=== PATIENT | female | born 1960 | race Two or more races ===

== ENCOUNTER 2017-08-28 02:59 | Inpatient (IN) | payer MEDICARE, MEDICAID ==
[~2017-08-28] VITALS: Ht 147.3 cm; Wt 68.1 kg
[2017-08-28] MEDS ORDERED: morphine SULFATE 10 MG/ML, 1ML IVPush PRN ×2 (03:30→06:00)
[2017-08-28] MEDS ORDERED: SODIUM CHLORIDE 0.9% 1,000ML IVBOLUS ONE (03:30)
[2017-08-28] MEDS ORDERED: SODIUM CHLORIDE FLUSH 10ML SYR IVF ONE (03:30)
[2017-08-28] MEDS ORDERED: ONDANSETRON 2MG/ML, 2ML IVPush ONE (03:30)
[2017-08-28] MEDS ORDERED: morphine SULFATE 10 MG/ML, 1ML ONE (03:41)
[2017-08-28] MEDS ORDERED: ONDANSETRON 2MG/ML, 2ML ONE (03:41)
[2017-08-28 03:59] LABS: ASPARTATE AMINO TRANSFERASE 223 U/L (15-37); BLOOD UREA NITROGEN 17 mg/dL (7-18)
[2017-08-28 04:17] LABS: WHITE BLOOD COUNT 7.1 x10^3/uL (3.4-10)
[2017-08-28] MEDS ORDERED: MAGNESIUM SULFATE 1 GM, THIAMINE 100 MG, FOLIC ACID 1 MG, MVI ADULT 10 ML in SODIUM CHL... IV ONE (05:00)
[2017-08-28] MEDS ORDERED: ACETAMINOPHEN 325 MG TABLET PO PRN (06:00)
[2017-08-28] MEDS ORDERED: DOCUSATE 100 MG CAPSULE PO PRN (06:00)
[2017-08-28] MEDS ORDERED: LORazepam 1MG TABLET PO PRN (06:00)
[2017-08-28] MEDS ORDERED: LORazepam 2 MG/ML, 1ML IV PRN ×3 (06:00)
[2017-08-28] MEDS ORDERED: POLYETHYLENE GLYCOL 17 GM PACKET PO PRN (06:00)
[2017-08-28 06:37] VITALS: BP 123/77
[2017-08-28] MEDS: THIAMINE 100MG TABLET PO SCH (08:21)
[2017-08-28] MEDS: SENNA/DOCUSATE TABLET PO SCH (08:21)
[2017-08-28] MEDS: FAMOTIDINE 20 MG TABLET PO SCH ×2 (08:21→20:52)
[2017-08-28] MEDS: MULTIVITAMIN 1 TABLET PO SCH (08:21)
[2017-08-28] MEDS: FOLIC ACID 1 MG TABLET PO SCH (08:21)
[2017-08-28] MEDS: ONDANSETRON 2MG/ML, 2ML IVPush PRN (08:21)
[2017-08-28] MEDS: CEFTRIAXONE PMX 1GM/50ML 50 ML IV SCH (08:22)
[2017-08-28 08:32] VITALS: BP 105/59
[2017-08-28] MEDS: OXYcodone IR 5MG TABLET PO PRN ×3 (10:50→22:32)
[2017-08-28] MEDS: METRONIDAZOLE PMX 500MG/100ML 100 ML IV SCH ×2 (10:50→17:45)
[2017-08-28 11:00] VITALS: BP 123/77
[2017-08-28] MEDS ORDERED: HALOPERIDOL 5 MG/ML IM PRN (11:30)
[2017-08-28 13:58] VITALS: BP 102/63
[2017-08-28] MEDS: LORazepam 0.5MG TABLET PO PRN (16:15)
[2017-08-28] MEDS: POTASSIUM CHLORIDE 20 MEQ in SODIUM CHLORIDE 0.9% 1,000 ML IV SCH (17:37)
[2017-08-28 19:34] VITALS: BP 104/67
[2017-08-29] VITALS (9 sets, daily range): BP systolic 98–120; BP diastolic 60–70
[2017-08-29] MEDS: LORazepam 0.5MG TABLET PO PRN ×2 (00:39→11:19)
[2017-08-29] MEDS: ONDANSETRON 2MG/ML, 2ML IVPush PRN (00:49)
[2017-08-29] MEDS ORDERED: LORazepam 2 MG/ML, 1ML IVPush ONE (01:00)
[2017-08-29] MEDS: METRONIDAZOLE PMX 500MG/100ML 100 ML IV SCH ×3 (02:16→18:17)
[2017-08-29 05:31] LABS: HEMATOCRIT 23.4 % (34.6-47.8); WHITE BLOOD COUNT 4.4 x10^3/uL (3.4-10)
[2017-08-29 05:48] LABS: ASPARTATE AMINO TRANSFERASE 167 U/L (15-37); BLOOD UREA NITROGEN 14 mg/dL (7-18)
[2017-08-29] MEDS: LEVOTHYROXINE 25 MCG TABLET PO SCH (05:51)
[2017-08-29 06:24] LABS: ANISOCYTOSIS 1+
[2017-08-29 06:25] LABS: POLYCHROMASIA 1+
[2017-08-29 06:26] LABS: LARGE PLATELETS 1+
[2017-08-29] MEDS ORDERED: MAGNESIUM SULFATE 6 GM in SODIUM CHLORIDE 0.9% 150 ML IV ONE (07:00)
[2017-08-29] MEDS: MULTIVITAMIN 1 TABLET PO SCH (08:13)
[2017-08-29] MEDS: SENNA/DOCUSATE TABLET PO SCH (08:13)
[2017-08-29] MEDS: FAMOTIDINE 20 MG TABLET PO SCH ×2 (08:13→21:01)
[2017-08-29] MEDS: FOLIC ACID 1 MG TABLET PO SCH (08:13)
[2017-08-29] MEDS: LORazepam 1MG TABLET PO PRN ×4 (08:13→22:18)
[2017-08-29] MEDS: THIAMINE 100MG TABLET PO SCH (08:13)
[2017-08-29] MEDS: POTASSIUM PHOSPHATE 44 MEQ in SODIUM CHLORIDE 0.9% 500 ML IV SCH ×2 (11:08→21:29)
[2017-08-29] MEDS: CEFTRIAXONE PMX 1GM/50ML 50 ML IV SCH (12:51)
[2017-08-29] MEDS: POTASSIUM CHLORIDE 20 MEQ in SODIUM CHLORIDE 0.9% 1,000 ML IV SCH (14:33)
[2017-08-29] MEDS: OXYcodone IR 5MG TABLET PO PRN (17:23)
[2017-08-30] MEDS: OXYcodone IR 5MG TABLET PO PRN (01:18)
[2017-08-30] MEDS: METRONIDAZOLE PMX 500MG/100ML 100 ML IV SCH ×3 (01:18→17:14)
[2017-08-30 01:47] VITALS: BP 116/70
[2017-08-30 03:20] VITALS: BP 95/60
[2017-08-30] MEDS: LORazepam 0.5MG TABLET PO PRN (05:49)
[2017-08-30] MEDS: LEVOTHYROXINE 25 MCG TABLET PO SCH (05:50)
[2017-08-30 07:52] LABS: ASPARTATE AMINO TRANSFERASE 125 U/L (15-37); BLOOD UREA NITROGEN 10 mg/dL (7-18)
[2017-08-30 07:55] LABS: HEMATOCRIT 25.3 % (34.6-47.8); HEMOGLOBIN 8.6 g/dL (11.7-16.4); WHITE BLOOD COUNT 4.2 x10^3/uL (3.4-10)
[2017-08-30 08:30] VITALS: BP 115/68
[2017-08-30] MEDS: MULTIVITAMIN 1 TABLET PO SCH (08:31)
[2017-08-30] MEDS: FAMOTIDINE 20 MG TABLET PO SCH ×2 (08:31→21:25)
[2017-08-30] MEDS: THIAMINE 100MG TABLET PO SCH (08:31)
[2017-08-30] MEDS: SENNA/DOCUSATE TABLET PO SCH (08:31)
[2017-08-30] MEDS: FOLIC ACID 1 MG TABLET PO SCH (08:31)
[2017-08-30] MEDS: MAGNESIUM OXIDE 400 MG TABLET PO SCH ×2 (08:33→21:25)
[2017-08-30] MEDS: SODIUM CHLORIDE 0.9% 1,000 ML IV SCH (09:48)
[2017-08-30] MEDS: LORazepam 1MG TABLET PO PRN (10:07)
[2017-08-30] MEDS: CEFTRIAXONE PMX 1GM/50ML 50 ML IV SCH (11:41)
[2017-08-30 14:15] VITALS: BP 103/65
[2017-08-30] MEDS ORDERED: LORazepam 2 MG/ML, 1ML IVPush PRN (17:00)
[2017-08-30 19:52] VITALS: BP 110/68
[2017-08-31 01:26] VITALS: BP 109/62
[2017-08-31] MEDS: METRONIDAZOLE PMX 500MG/100ML 100 ML IV SCH ×3 (02:06→16:53)
[2017-08-31] MEDS: LEVOTHYROXINE 25 MCG TABLET PO SCH (05:18)
[2017-08-31] MEDS: OXYcodone IR 5MG TABLET PO PRN ×2 (05:27→20:22)
[2017-08-31] MEDS: SODIUM CHLORIDE 0.9% 1,000 ML IV SCH (05:30)
[2017-08-31 06:10] LABS: BLOOD UREA NITROGEN 8 mg/dL (7-18)
[2017-08-31 06:23] LABS: HEMATOCRIT 26.6 % (34.6-47.8); WHITE BLOOD COUNT 4.4 x10^3/uL (3.4-10)
[2017-08-31 07:45] VITALS: BP 121/78
[2017-08-31] MEDS: FAMOTIDINE 20 MG TABLET PO SCH ×2 (09:22→20:22)
[2017-08-31] MEDS: MULTIVITAMIN 1 TABLET PO SCH (09:22)
[2017-08-31] MEDS: SENNA/DOCUSATE TABLET PO SCH (09:22)
[2017-08-31] MEDS: MAGNESIUM OXIDE 400 MG TABLET PO SCH ×2 (09:22→20:22)
[2017-08-31] MEDS: FOLIC ACID 1 MG TABLET PO SCH (09:22)
[2017-08-31] MEDS: THIAMINE 100MG TABLET PO SCH (09:22)
[2017-08-31] MEDS: CEFTRIAXONE PMX 1GM/50ML 50 ML IV SCH (12:16)
[2017-08-31 20:00] VITALS: BP 94/64
[2017-09-01] MEDS: METRONIDAZOLE PMX 500MG/100ML 100 ML IV SCH ×3 (01:27→17:33)
[2017-09-01 02:30] VITALS: BP 91/53
[2017-09-01] MEDS: LEVOTHYROXINE 25 MCG TABLET PO SCH (05:08)
[2017-09-01] MEDS: OXYcodone IR 5MG TABLET PO PRN ×3 (05:26→20:58)
[2017-09-01 05:59] LABS: HEMATOCRIT 26.3 % (34.6-47.8); HEMOGLOBIN 8.8 g/dL (11.7-16.4); WHITE BLOOD COUNT 4.9 x10^3/uL (3.4-10)
[2017-09-01 06:17] LABS: ASPARTATE AMINO TRANSFERASE 75 U/L (15-37); BLOOD UREA NITROGEN 8 mg/dL (7-18)
[2017-09-01 06:38] LABS: DIFF TOTAL CELLS COUNTED 100 CELL DIFF
[2017-09-01 06:47] LABS: ANISOCYTOSIS 1+; VERIFY COUNTS? YES
[2017-09-01 08:03] VITALS: BP 101/58
[2017-09-01] MEDS: SENNA/DOCUSATE TABLET PO SCH (09:00)
[2017-09-01] MEDS: SODIUM CHLORIDE 0.9% 1,000 ML IV SCH (09:30)
[2017-09-01] MEDS: MAGNESIUM OXIDE 400 MG TABLET PO SCH ×2 (09:34→20:44)
[2017-09-01] MEDS: THIAMINE 100MG TABLET PO SCH (09:34)
[2017-09-01] MEDS: FAMOTIDINE 20 MG TABLET PO SCH ×2 (09:34→20:44)
[2017-09-01] MEDS: MULTIVITAMIN 1 TABLET PO SCH (09:34)
[2017-09-01] MEDS: FOLIC ACID 1 MG TABLET PO SCH (09:34)
[2017-09-01] MEDS: CEFTRIAXONE PMX 1GM/50ML 50 ML IV SCH (11:38)
[2017-09-01 13:46] VITALS: BP 103/59
[2017-09-01] MEDS: LORazepam 2 MG/ML, 1ML IVPush PRN (16:18)
[2017-09-01] MEDS ORDERED: MAGNESIUM SULFATE 6 GM in SODIUM CHLORIDE 0.9% 150 ML IV ONE (18:00)
[2017-09-01] MEDS ORDERED: POTASSIUM PHOSPHATE 44 MEQ in SODIUM CHLORIDE 0.9% 500 ML IV ONE (18:00)
[2017-09-01 18:34] VITALS: BP 97/60
[2017-09-02 01:43] VITALS: BP 92/58
[2017-09-02] MEDS: METRONIDAZOLE PMX 500MG/100ML 100 ML IV SCH ×3 (02:31→18:37)
[2017-09-02] MEDS: LEVOTHYROXINE 25 MCG TABLET PO SCH (05:03)
[2017-09-02] MEDS: OXYcodone IR 5MG TABLET PO PRN ×3 (05:03→20:37)
[2017-09-02] MEDS: SODIUM CHLORIDE 0.9% 1,000 ML IV SCH ×2 (05:30→18:00)
[2017-09-02 06:02] LABS: HEMATOCRIT 25.2 % (34.6-47.8); HEMOGLOBIN 8.5 g/dL (11.7-16.4); WHITE BLOOD COUNT 6.2 x10^3/uL (3.4-10)
[2017-09-02 06:33] LABS: ASPARTATE AMINO TRANSFERASE 60 U/L (15-37); BLOOD UREA NITROGEN 7 mg/dL (7-18)
[2017-09-02] MEDS: MAGNESIUM OXIDE 400 MG TABLET PO SCH ×2 (08:19→20:38)
[2017-09-02] MEDS: SENNA/DOCUSATE TABLET PO SCH (08:19)
[2017-09-02] MEDS: FOLIC ACID 1 MG TABLET PO SCH (10:02)
[2017-09-02] MEDS: THIAMINE 100MG TABLET PO SCH (10:02)
[2017-09-02] MEDS: MULTIVITAMIN 1 TABLET PO SCH (10:02)
[2017-09-02] MEDS: FAMOTIDINE 20 MG TABLET PO SCH ×2 (10:02→20:38)
[2017-09-02 10:24] VITALS: BP 111/73
[2017-09-02] MEDS: CEFTRIAXONE PMX 1GM/50ML 50 ML IV SCH (14:07)
[2017-09-02 14:54] VITALS: BP 100/64
[2017-09-02 20:42] VITALS: BP 96/63
[2017-09-03] MEDS: OXYcodone IR 5MG TABLET PO PRN ×4 (01:35→20:08)
[2017-09-03] MEDS: METRONIDAZOLE PMX 500MG/100ML 100 ML IV SCH ×3 (01:44→16:24)
[2017-09-03 01:57] VITALS: BP 100/67
[2017-09-03] MEDS: LORazepam 2 MG/ML, 1ML IVPush PRN ×2 (04:56→23:12)
[2017-09-03] MEDS: LEVOTHYROXINE 25 MCG TABLET PO SCH (04:56)
[2017-09-03 07:47] VITALS: BP 108/75
[2017-09-03] MEDS: FAMOTIDINE 20 MG TABLET PO SCH ×2 (08:00→20:08)
[2017-09-03] MEDS: MULTIVITAMIN 1 TABLET PO SCH (08:00)
[2017-09-03] MEDS: THIAMINE 100MG TABLET PO SCH (08:00)
[2017-09-03] MEDS: SENNA/DOCUSATE TABLET PO SCH (08:00)
[2017-09-03] MEDS: FOLIC ACID 1 MG TABLET PO SCH (08:00)
[2017-09-03] MEDS: MAGNESIUM OXIDE 400 MG TABLET PO SCH ×2 (08:34→20:08)
[2017-09-03] MEDS: CEFTRIAXONE PMX 1GM/50ML 50 ML IV SCH (12:04)
[2017-09-03 13:24] LABS: BLOOD UREA NITROGEN 6 mg/dL (7-18)
[2017-09-03 13:27] LABS: ASPARTATE AMINO TRANSFERASE 67 U/L (15-37)
[2017-09-03 14:32] VITALS: BP 99/68
[2017-09-03 14:40] LABS: HEMATOCRIT 31.1 % (34.6-47.8); HEMOGLOBIN 10.2 g/dL (11.7-16.4); WHITE BLOOD COUNT 5.6 x10^3/uL (3.4-10)
[2017-09-03] MEDS: SODIUM CHLORIDE 0.9% 1,000 ML IV SCH (16:24)
[2017-09-03 19:08] VITALS: BP 107/68
[2017-09-04 00:52] VITALS: BP 100/66
[2017-09-04] MEDS: OXYcodone IR 5MG TABLET PO PRN ×5 (01:04→20:23)
[2017-09-04] MEDS: METRONIDAZOLE PMX 500MG/100ML 100 ML IV SCH ×3 (01:04→16:25)
[2017-09-04] MEDS: LEVOTHYROXINE 25 MCG TABLET PO SCH (06:12)
[2017-09-04 07:54] VITALS: BP 99/56
[2017-09-04 08:45] LABS: ASPARTATE AMINO TRANSFERASE 54 U/L (15-37); BLOOD UREA NITROGEN 7 mg/dL (7-18)
[2017-09-04 09:26] LABS: DIFF TOTAL CELLS COUNTED 100 CELL DIFF
[2017-09-04] MEDS: MAGNESIUM OXIDE 400 MG TABLET PO SCH ×2 (09:26→20:20)
[2017-09-04] MEDS: MULTIVITAMIN 1 TABLET PO SCH (09:26)
[2017-09-04] MEDS: SENNA/DOCUSATE TABLET PO SCH (09:26)
[2017-09-04] MEDS: FAMOTIDINE 20 MG TABLET PO SCH ×2 (09:26→20:20)
[2017-09-04] MEDS: THIAMINE 100MG TABLET PO SCH (09:26)
[2017-09-04] MEDS: FOLIC ACID 1 MG TABLET PO SCH (09:26)
[2017-09-04 09:27] LABS: HEMATOCRIT 27.5 % (34.6-47.8); HEMOGLOBIN 9.1 g/dL (11.7-16.4); WHITE BLOOD COUNT 5.4 x10^3/uL (3.4-10)
[2017-09-04 09:33] LABS: VERIFY COUNTS? YES
[2017-09-04 09:35] LABS: ANISOCYTOSIS 1+; LARGE PLATELETS 1+
[2017-09-04] MEDS: CEFTRIAXONE PMX 1GM/50ML 50 ML IV SCH (12:18)
[2017-09-04 13:47] VITALS: BP 99/56
[2017-09-04] MEDS: SODIUM CHLORIDE 0.9% 1,000 ML IV SCH (19:55)
[2017-09-04 20:00] VITALS: BP 93/61
[2017-09-04] MEDS: LORazepam 2 MG/ML, 1ML IVPush PRN (22:34)
[2017-09-05] MEDS: OXYcodone IR 5MG TABLET PO PRN ×4 (01:34→16:56)
[2017-09-05 02:00] VITALS: BP 105/73
[2017-09-05] MEDS: LEVOTHYROXINE 25 MCG TABLET PO SCH (05:37)
[2017-09-05 05:50] LABS: HEMATOCRIT 26.8 % (34.6-47.8); HEMOGLOBIN 8.8 g/dL (11.7-16.4); WHITE BLOOD COUNT 5.4 x10^3/uL (3.4-10)
[2017-09-05 06:06] LABS: ASPARTATE AMINO TRANSFERASE 49 U/L (15-37); BLOOD UREA NITROGEN 7 mg/dL (7-18)
[2017-09-05] MEDS ORDERED: MULT1TAB60 PO (06:06)
[2017-09-05] MEDS ORDERED: LEVO25TA2 PO (06:06)
[2017-09-05] MEDS ORDERED: FURO40TA6 PO (06:06)
[2017-09-05] MEDS ORDERED: FOLI-17 PO (06:06)
[2017-09-05] MEDS ORDERED: MAGN400T26 PO (06:06)
[2017-09-05] MEDS ORDERED: TRAM50TA2 PO (06:06)
[2017-09-05] MEDS ORDERED: SPIR50TA PO (06:06)
[2017-09-05] MEDS ORDERED: THIA100T6 PO (06:06)
[2017-09-05 06:23] LABS: DIFF TOTAL CELLS COUNTED 100 CELL DIFF
[2017-09-05 06:27] LABS: ANISOCYTOSIS 1+; LARGE PLATELETS 1+; VERIFY COUNTS? YES
[2017-09-05] MEDS ORDERED: OXYC5TAB3 PO (06:28)
[2017-09-05] MEDS ORDERED: MAGNESIUM SULFATE 6 GM in SODIUM CHLORIDE 0.9% 150 ML IV ONE (06:30)
[2017-09-05] MEDS ORDERED: POTASSIUM PHOSPHATE 44 MEQ in SODIUM CHLORIDE 0.9% 500 ML IV ONE (06:30)
[2017-09-05] MEDS: POTASSIUM PHOSPHATE 44 MEQ in SODIUM CHLORIDE 0.9% 500 ML IV SCH ×2 (06:40→14:42)
[2017-09-05 08:00] VITALS: BP 95/59
[2017-09-05] MEDS: MAGNESIUM OXIDE 400 MG TABLET PO SCH (09:00)
[2017-09-05] MEDS: METRONIDAZOLE PMX 500MG/100ML 100 ML IV SCH ×3 (09:38→16:48)
[2017-09-05] MEDS: SENNA/DOCUSATE TABLET PO SCH (09:38)
[2017-09-05] MEDS: FAMOTIDINE 20 MG TABLET PO SCH (09:38)
[2017-09-05] MEDS: MULTIVITAMIN 1 TABLET PO SCH (09:38)
[2017-09-05] MEDS: FOLIC ACID 1 MG TABLET PO SCH (09:38)
[2017-09-05] MEDS: THIAMINE 100MG TABLET PO SCH (09:38)
[2017-09-05] MEDS: CEFTRIAXONE PMX 1GM/50ML 50 ML IV SCH (12:30)
[2017-09-05 13:18] VITALS: BP 97/60
[2017-09-05] MEDS: SODIUM CHLORIDE 0.9% 1,000 ML IV SCH (14:42)
== END 2017-09-05 23:56 | DRG 391 ==
LOC: ED 05:09 → EDIP 05:27 → 4WST 06:26
PROVIDERS: ADMIT Family Medicine; ATTEND Internal Medicine
PROC: 30233R1 Transfusion of Nonautologous Platelets into Peripheral Vein, Percutaneous Approach (ICD-10-PCS; principal; 2017-08-29)
PROC: 02HV33Z Insertion of Infusion Device into Superior Vena Cava, Percutaneous Approach (ICD-10-PCS; 2017-08-29)
PROC: B5181ZA Fluoroscopy of Superior Vena Cava using Low Osmolar Contrast, Guidance (ICD-10-PCS; 2017-08-29)
DX: K57.92 Diverticulitis of intestine, part unspecified, without perforation or abscess without bleeding (principal); E43 Unspecified severe protein-calorie malnutrition; D69.3 Immune thrombocytopenic purpura; D68.4 Acquired coagulation factor deficiency; K70.31 Alcoholic cirrhosis of liver with ascites; B18.1 Chronic viral hepatitis B without delta-agent; F10.239 Alcohol dependence with withdrawal, unspecified; B18.2 Chronic viral hepatitis C; E03.9 Hypothyroidism, unspecified; G40.909 Epilepsy, unspecified, not intractable, without status epilepticus; D63.8 Anemia in other chronic diseases classified elsewhere; Z68.31 Body mass index [BMI] 31.0-31.9, adult; Z88.0 Allergy status to penicillin; Z88.8 Allergy status to other drugs, medicaments and biological substances; D53.9 Nutritional anemia, unspecified; E83.39 Other disorders of phosphorus metabolism; E83.42 Hypomagnesemia; Z80.9 Family history of malignant neoplasm, unspecified; Z83.3 Family history of diabetes mellitus; Z90.49 Acquired absence of other specified parts of digestive tract; Z90.81 Acquired absence of spleen
CPT/HCPCS: 36415; 36569; 70450; 71010; 74176; 74181; 76937; 77001; 80048; 80053; 80307; 81001; 82140; 82962; 83690; 83735; 84100; 84439; 84443; 85025; 85610; 86704; 86706; 86708; 86803; 86850; 86900; 87077; 87086; 87186; 87340; 93005; 96361; 96365; 96375; J0696; J2405; J3411; J3475; J3480; C1751; G0479; J2060; J2270; J7030; J7040; P9035

== ENCOUNTER 2017-10-03 16:42 | Inpatient (IN) | payer MEDICARE, MEDICAID ==
[~2017-10-03] VITALS: Ht 149.9 cm; Wt 45.5 kg
[~2017-10-03 16:42] MED LIST: FOLI-17 PO; FURO40TA6 PO; LEVO25TA2 PO; MAGN400T26 PO; MULT1TAB60 PO; OXYC5TAB3 PO; SPIR50TA PO; THIA100T6 PO; TRAM50TA2 PO
[2017-10-03] MEDS ORDERED: SODIUM CHLORIDE 0.9% 1,000ML IVBOLUS ONE (17:30)
[2017-10-03] MEDS ORDERED: SODIUM CHLORIDE FLUSH 10ML SYR IVF ONE (17:30)
[2017-10-03 18:49] LABS: BASOPHILS # (AUTO) 0.01 x10^3/uL (0-0.1); BASOPHILS % (AUTO) 0 % (0-1); EOSINOPHILS # (AUTO) 0.21 x10^3/uL (0-0.4); EOSINOPHILS % (AUTO) 3 % (1-7); LYMPHOCYTES # (AUTO) 1.29 x10^3/uL (1-3.4); LYMPHOCYTES % (AUTO) 15 % (22-44); MD NO; MEAN CORPUSCULAR HEMOGLOBIN 35.7 pg (27.0-34.8); MEAN CORPUSCULAR VOLUME 104.9 fL (80-100); MEAN PLATELET VOLUME 9.8 fL (7.4-10.4); MONOCYTES # (AUTO) 1.11 x10^3/uL (0.2-0.8); MONOCYTES % (AUTO) 13 % (2-9); NEUTROPHILS % (AUTO) 69 % (42-75); PLATELET COUNT 111 x10^3/uL (130-400); RED BLOOD COUNT 2.97 x10^6/uL (3.82-5.3); RED CELL DISTRIBUTION WIDTH 16.5 % (9.6-15.2)
[2017-10-03 18:56] LABS: INTERNATIONAL NORMALIZED RATIO 1.49 (0.93-1.1); PROTHROMBIN TIME 15.4 Seconds (9.6-11.5)
[2017-10-03 18:59] LABS: ALBUMIN 3.3 g/dL (3.4-5.0); ANION GAP 11 mmol/L (5-15); CHLORIDE 98 mmol/L (98-107)
[2017-10-03 19:03] LABS: ALANINE AMINOTRANSFERASE 28 U/L (12-78); ALKALINE PHOSPHATASE 114 U/L (45-117); BILIRUBIN,TOTAL 7.7 mg/dL (0.2-1.0); CREATININE 1.51 mg/dL (0.55-1.02); TOTAL PROTEIN 8.8 g/dL (6.4-8.2)
[2017-10-03 19:05] LABS: TROPONIN I < 0.015 ng/mL (0.000-0.045)
[2017-10-03] MEDS ORDERED: LACTULOSE 20 GM/30 ML UDC PO ONE (19:30)
[2017-10-03 20:41] LABS: AMPHETAMINE SCREEN, URINE Negative (Negative); BARBITURATE SCREEN, URINE Negative (Negative); BENZODIAZEPINE SCREEN, URINE Negative (Negative); CANNABINOID SCREEN, URINE Negative (Negative); COCAINE SCREEN, URINE Negative (Negative); METHADONE SCREEN, URINE Negative (Negative); OPIATE SCREEN, URINE Positive (Negative)
[2017-10-03] MEDS ORDERED: HYDROmorphone 2 MG/ML, 1ML ONE (20:47)
[2017-10-03] MEDS ORDERED: ONDANSETRON 2MG/ML, 2ML ONE (20:53)
[2017-10-03 20:54] LABS: CULTURE INDICATED? YES; MICROSCOPIC INDICATED
[2017-10-03] MEDS ORDERED: SODIUM CHLORIDE FLUSH 10ML SYR IVF PRN (21:00)
[2017-10-03] MEDS ORDERED: ONDANSETRON 2MG/ML, 2ML IVPush PRN ×2 (21:00→21:30)
[2017-10-03] MEDS ORDERED: HYDROmorphone 1 MG/ML, 1ML IVPush PRN (21:00)
[2017-10-03] MEDS ORDERED: hydrALAzine 20 MG/ML, 1ML IVPush PRN (21:30)
[2017-10-03 22:00] VITALS: BP 116/77
[2017-10-03] MEDS: MAGNESIUM OXIDE 400 MG TABLET PO SCH (23:39)
[2017-10-04] MEDS: OXYcodone IR 5MG TABLET PO PRN ×5 (02:08→20:03)
[2017-10-04 03:53] VITALS: BP 100/64
[2017-10-04] MEDS ORDERED: LEVOTHYROXINE 25 MCG TABLET PO SCH (06:00)
[2017-10-04 07:35] LABS: MEAN CORPUSCULAR HEMOGLOBIN 35.6 pg (27.0-34.8); MEAN CORPUSCULAR HGB CONC 34.2 g/dL (32.4-35.8); MEAN CORPUSCULAR VOLUME 104.2 fL (80-100); RED BLOOD COUNT 2.44 x10^6/uL (3.82-5.3); RED CELL DISTRIBUTION WIDTH 16.5 % (9.6-15.2)
[2017-10-04] MEDS: THIAMINE 100MG TABLET PO SCH (07:41)
[2017-10-04] MEDS: LACTULOSE 10 GM/15 ML UDC PO SCH ×4 (07:41→23:56)
[2017-10-04] MEDS: MULTIVITAMIN 1 TABLET PO SCH (07:41)
[2017-10-04] MEDS: FOLIC ACID 1 MG TABLET PO SCH (07:41)
[2017-10-04] MEDS: MAGNESIUM OXIDE 400 MG TABLET PO SCH ×2 (07:41→20:49)
[2017-10-04] MEDS: FUROSEMIDE 40 MG TABLET PO SCH (07:41)
[2017-10-04] MEDS: SPIRONOLACTONE 50 MG TABLET PO SCH (07:41)
[2017-10-04 07:43] LABS: ALANINE AMINOTRANSFERASE 22 U/L (12-78); ALBUMIN 2.6 g/dL (3.4-5.0); ANION GAP 11 mmol/L (5-15); CALCIUM 9.1 mg/dL (8.5-10.1); CHLORIDE 102 mmol/L (98-107); CREATININE 1.38 mg/dL (0.55-1.02)
[2017-10-04 07:45] LABS: ALKALINE PHOSPHATASE 93 U/L (45-117); BILIRUBIN,TOTAL 6.3 mg/dL (0.2-1.0); TOTAL PROTEIN 7.2 g/dL (6.4-8.2)
[2017-10-04 08:19] VITALS: BP 95/65
[2017-10-04 08:36] LABS: BASOPHILS # (AUTO) 0.01 x10^3/uL (0-0.1); BASOPHILS % (AUTO) 0 % (0-1); EOSINOPHILS # (AUTO) 0.26 x10^3/uL (0-0.4); EOSINOPHILS % (AUTO) 3 % (1-7); LYMPHOCYTES # (AUTO) 1.28 x10^3/uL (1-3.4); LYMPHOCYTES % (AUTO) 16 % (22-44); MD SCAN; MEAN PLATELET VOLUME 9.1 fL (7.4-10.4); MONOCYTES # (AUTO) 1.15 x10^3/uL (0.2-0.8); MONOCYTES % (AUTO) 14 % (2-9); NEUTROPHILS # (AUTO) 5.54 x10^3/uL (1.8-6.8); NEUTROPHILS % (AUTO) 67 % (42-75); PLATELET COUNT 68 x10^3/uL (130-400)
[2017-10-04 09:43] LABS: THYROID STIMULATING HORMONE 64.9 mIU/L (0.358-3.740)
[2017-10-04 13:19] VITALS: BP 108/73
[2017-10-04] MEDS: LEVOTHYROXINE 100 MCG INJ IVPush SCH (17:53)
[2017-10-04] MEDS ORDERED: LORazepam 0.5MG TABLET PO ONE (18:30)
[2017-10-04 20:01] VITALS: BP 128/79
[2017-10-04] MEDS: RIFAXIMIN 550 MG TABLET PO SCH (20:49)
[2017-10-05] MEDS: OXYcodone IR 5MG TABLET PO PRN ×6 (00:08→21:43)
[2017-10-05 02:30] VITALS: BP 129/84
[2017-10-05] MEDS: LACTULOSE 10 GM/15 ML UDC PO SCH ×5 (04:01→21:00)
[2017-10-05] MEDS: LEVOTHYROXINE 100 MCG INJ IVPush SCH (05:38)
[2017-10-05 06:48] LABS: MEAN CORPUSCULAR HEMOGLOBIN 35.9 pg (27.0-34.8); MEAN CORPUSCULAR HGB CONC 34.4 g/dL (32.4-35.8); MEAN CORPUSCULAR VOLUME 104.3 fL (80-100); PLATELET COUNT 69 x10^3/uL (130-400); RED BLOOD COUNT 2.54 x10^6/uL (3.82-5.3); RED CELL DISTRIBUTION WIDTH 17.3 % (9.6-15.2)
[2017-10-05 06:59] LABS: ALANINE AMINOTRANSFERASE 22 U/L (12-78); ALBUMIN 2.8 g/dL (3.4-5.0); ANION GAP 9 mmol/L (5-15); CALCIUM 9.6 mg/dL (8.5-10.1); CHLORIDE 105 mmol/L (98-107)
[2017-10-05 07:08] LABS: ALKALINE PHOSPHATASE 94 U/L (45-117); BILIRUBIN,TOTAL 6.8 mg/dL (0.2-1.0); TOTAL PROTEIN 7.5 g/dL (6.4-8.2)
[2017-10-05 07:31] LABS: BASOPHILS # (AUTO) 0.02 x10^3/uL (0-0.1); BASOPHILS % (AUTO) 0 % (0-1); EOSINOPHILS # (AUTO) 0.35 x10^3/uL (0-0.4); EOSINOPHILS % (AUTO) 5 % (1-7); LYMPHOCYTES # (AUTO) 1.43 x10^3/uL (1-3.4); LYMPHOCYTES % (AUTO) 20 % (22-44); MD SCAN; MONOCYTES % (AUTO) 17 % (2-9); NEUTROPHILS # (AUTO) 4.04 x10^3/uL (1.8-6.8); NEUTROPHILS % (AUTO) 57 % (42-75)
[2017-10-05 08:38] VITALS: BP 107/69
[2017-10-05] MEDS: SPIRONOLACTONE 50 MG TABLET PO SCH (08:46)
[2017-10-05] MEDS: MAGNESIUM OXIDE 400 MG TABLET PO SCH ×2 (08:47→21:17)
[2017-10-05] MEDS: FUROSEMIDE 40 MG TABLET PO SCH (08:47)
[2017-10-05] MEDS: FOLIC ACID 1 MG TABLET PO SCH (08:47)
[2017-10-05] MEDS: THIAMINE 100MG TABLET PO SCH (08:48)
[2017-10-05] MEDS: MULTIVITAMIN 1 TABLET PO SCH (08:48)
[2017-10-05] MEDS: RIFAXIMIN 550 MG TABLET PO SCH ×2 (08:48→21:17)
[2017-10-05] MEDS: PHYTONADIONE 5 MG TABLET PO SCH (08:48)
[2017-10-05 12:25] VITALS: BP 105/73
[2017-10-05 18:42] VITALS: BP 113/71
[2017-10-06 01:06] VITALS: BP 123/86
[2017-10-06] MEDS: LACTULOSE 10 GM/15 ML UDC PO SCH ×2 (02:48→08:35)
[2017-10-06 06:44] LABS: MEAN CORPUSCULAR HEMOGLOBIN 35.7 pg (27.0-34.8); MEAN CORPUSCULAR HGB CONC 33.7 g/dL (32.4-35.8); MEAN CORPUSCULAR VOLUME 106.1 fL (80-100); MEAN PLATELET VOLUME 9.3 fL (7.4-10.4); PLATELET COUNT 75 x10^3/uL (130-400); RED BLOOD COUNT 2.89 x10^6/uL (3.82-5.3); RED CELL DISTRIBUTION WIDTH 16.8 % (9.6-15.2)
[2017-10-06 06:52] LABS: ALANINE AMINOTRANSFERASE 27 U/L (12-78); ALBUMIN 3.1 g/dL (3.4-5.0); ANION GAP 10 mmol/L (5-15); CHLORIDE 99 mmol/L (98-107)
[2017-10-06 06:55] LABS: ALKALINE PHOSPHATASE 105 U/L (45-117); BILIRUBIN,TOTAL 7.6 mg/dL (0.2-1.0); CREATININE 1.41 mg/dL (0.55-1.02); TOTAL PROTEIN 8.3 g/dL (6.4-8.2)
[2017-10-06 07:00] LABS: BASOPHILS # (AUTO) 0.03 x10^3/uL (0-0.1); BASOPHILS % (AUTO) 0 % (0-1); EOSINOPHILS # (AUTO) 0.15 x10^3/uL (0-0.4); EOSINOPHILS % (AUTO) 2 % (1-7); LYMPHOCYTES % (AUTO) 12 % (22-44); MD SCAN; MONOCYTES # (AUTO) 1.34 x10^3/uL (0.2-0.8); MONOCYTES % (AUTO) 13 % (2-9); NEUTROPHILS # (AUTO) 7.38 x10^3/uL (1.8-6.8); NEUTROPHILS % (AUTO) 73 % (42-75)
[2017-10-06 08:23] VITALS: BP 105/67
[2017-10-06] MEDS: OXYcodone IR 5MG TABLET PO PRN ×4 (08:35→22:19)
[2017-10-06] MEDS: MAGNESIUM OXIDE 400 MG TABLET PO SCH ×2 (08:35→21:48)
[2017-10-06] MEDS: PHYTONADIONE 5 MG TABLET PO SCH (08:36)
[2017-10-06] MEDS: FUROSEMIDE 40 MG TABLET PO SCH (08:36)
[2017-10-06] MEDS: MULTIVITAMIN 1 TABLET PO SCH (08:36)
[2017-10-06] MEDS: THIAMINE 100MG TABLET PO SCH (08:36)
[2017-10-06] MEDS: RIFAXIMIN 550 MG TABLET PO SCH ×2 (08:36→21:48)
[2017-10-06] MEDS: FOLIC ACID 1 MG TABLET PO SCH (08:36)
[2017-10-06] MEDS ORDERED: LEVOTHYROXINE 100 MCG INJ IVPush SCH (09:00)
[2017-10-06] MEDS: SPIRONOLACTONE 50 MG TABLET PO SCH (09:28)
[2017-10-06 13:32] VITALS: BP 97/65
[2017-10-06] MEDS ORDERED: LACTULOSE 10 GM/15 ML UDC PO SCH (16:00)
[2017-10-06] MEDS: LACTULOSE 20 GM/30 ML UDC PO SCH ×2 (17:13→21:48)
[2017-10-06 20:41] VITALS: BP 118/74
[2017-10-07 02:32] VITALS: BP 97/61
[2017-10-07] MEDS: OXYcodone IR 5MG TABLET PO PRN ×5 (04:32→20:48)
[2017-10-07 05:41] LABS: ALBUMIN 2.5 g/dL (3.4-5.0); ANION GAP 8 mmol/L (5-15); CALCIUM 8.8 mg/dL (8.5-10.1); CHLORIDE 96 mmol/L (98-107)
[2017-10-07 05:46] LABS: ALANINE AMINOTRANSFERASE 20 U/L (12-78); ALKALINE PHOSPHATASE 101 U/L (45-117); CREATININE 1.43 mg/dL (0.55-1.02); TOTAL PROTEIN 6.8 g/dL (6.4-8.2)
[2017-10-07] MEDS: LEVOTHYROXINE 125 MCG TABLET PO SCH (05:49)
[2017-10-07 06:02] LABS: MEAN CORPUSCULAR HEMOGLOBIN 35.4 pg (27.0-34.8); MEAN CORPUSCULAR HGB CONC 34.1 g/dL (32.4-35.8); PLATELET COUNT 70 x10^3/uL (130-400); RED BLOOD COUNT 2.48 x10^6/uL (3.82-5.3); RED CELL DISTRIBUTION WIDTH 16.7 % (9.6-15.2)
[2017-10-07 06:34] LABS: BAND#(MANUAL) 0.17 x10^3/uL; BANDS%(MANUAL) 3 % (0-7); EOS#(MANUAL) 0.52 x10^3/uL (0.0-0.4); EOS% (MANUAL) 9 % (1-7); LYMPH#(MANUAL) 1.22 x10^3/uL (1-3.4); LYMPHS% (MANUAL) 21 % (22-44); MD YES; MONOS#(MANUAL) 1.16 x10^3/uL (0.3-2.7); MONOS% (MANUAL) 20 % (2-9); SEG#(MANUAL) 2.73 x10^3/uL (1.8-6.8); SEGS% (MANUAL) 47 % (42-75)
[2017-10-07 06:38] LABS: ANISOCYTOSIS 1+
[2017-10-07 06:39] LABS: ECHINOCYTES 1+; OVALOCYTES 1+
[2017-10-07 06:40] LABS: SCHISTOCYTES 1+
[2017-10-07 06:41] LABS: <PLATELET ESTIMATE> DECREASED; <PLT MORPHOLOGY> NORMAL PLT MORPH
[2017-10-07 07:11] VITALS: BP 84/54
[2017-10-07] MEDS: FUROSEMIDE 40 MG TABLET PO SCH (07:36)
[2017-10-07] MEDS: SPIRONOLACTONE 50 MG TABLET PO SCH (07:36)
[2017-10-07] MEDS: LACTULOSE 20 GM/30 ML UDC PO SCH ×3 (08:27→20:00)
[2017-10-07] MEDS: THIAMINE 100MG TABLET PO SCH (08:28)
[2017-10-07] MEDS: PHYTONADIONE 5 MG TABLET PO SCH (08:28)
[2017-10-07] MEDS: MAGNESIUM OXIDE 400 MG TABLET PO SCH ×2 (08:28→20:00)
[2017-10-07] MEDS: FOLIC ACID 1 MG TABLET PO SCH (08:28)
[2017-10-07] MEDS: RIFAXIMIN 550 MG TABLET PO SCH ×2 (08:28→20:00)
[2017-10-07] MEDS: MULTIVITAMIN 1 TABLET PO SCH (08:28)
[2017-10-07 13:44] VITALS: BP 90/55
[2017-10-07 19:23] VITALS: BP 93/58
[2017-10-08 00:35] VITALS: BP 102/67
[2017-10-08] MEDS: OXYcodone IR 5MG TABLET PO PRN ×5 (01:04→20:25)
[2017-10-08] MEDS: LEVOTHYROXINE 125 MCG TABLET PO SCH (05:13)
[2017-10-08 05:26] LABS: MEAN CORPUSCULAR HGB CONC 34.6 g/dL (32.4-35.8); MEAN CORPUSCULAR VOLUME 104.1 fL (80-100); MEAN PLATELET VOLUME 9.1 fL (7.4-10.4); PLATELET COUNT 83 x10^3/uL (130-400); RED BLOOD COUNT 2.83 x10^6/uL (3.82-5.3); RED CELL DISTRIBUTION WIDTH 16.4 % (9.6-15.2)
[2017-10-08 05:27] LABS: ALBUMIN 2.9 g/dL (3.4-5.0); ANION GAP 10 mmol/L (5-15); CALCIUM 9.1 mg/dL (8.5-10.1); CHLORIDE 96 mmol/L (98-107)
[2017-10-08 05:31] LABS: ALANINE AMINOTRANSFERASE 24 U/L (12-78); ALKALINE PHOSPHATASE 116 U/L (45-117); BILIRUBIN,TOTAL 5.6 mg/dL (0.2-1.0); CREATININE 1.35 mg/dL (0.55-1.02)
[2017-10-08 05:51] LABS: BASOPHILS # (AUTO) 0.04 x10^3/uL (0-0.1); BASOPHILS % (AUTO) 1 % (0-1); EOSINOPHILS # (AUTO) 0.31 x10^3/uL (0-0.4); EOSINOPHILS % (AUTO) 5 % (1-7); LYMPHOCYTES # (AUTO) 1.62 x10^3/uL (1-3.4); LYMPHOCYTES % (AUTO) 25 % (22-44); MD SCAN; MONOCYTES # (AUTO) 0.87 x10^3/uL (0.2-0.8); MONOCYTES % (AUTO) 13 % (2-9); NEUTROPHILS # (AUTO) 3.73 x10^3/uL (1.8-6.8); NEUTROPHILS % (AUTO) 57 % (42-75)
[2017-10-08 07:35] VITALS: BP 94/53
[2017-10-08] MEDS: FUROSEMIDE 40 MG TABLET PO SCH ×2 (08:41→08:46)
[2017-10-08] MEDS: LACTULOSE 20 GM/30 ML UDC PO SCH ×3 (08:41→20:25)
[2017-10-08] MEDS: THIAMINE 100MG TABLET PO SCH (08:41)
[2017-10-08] MEDS: MULTIVITAMIN 1 TABLET PO SCH (08:41)
[2017-10-08] MEDS: RIFAXIMIN 550 MG TABLET PO SCH ×2 (08:41→20:24)
[2017-10-08] MEDS: MAGNESIUM OXIDE 400 MG TABLET PO SCH ×2 (08:41→20:24)
[2017-10-08] MEDS: FOLIC ACID 1 MG TABLET PO SCH (08:41)
[2017-10-08] MEDS: SPIRONOLACTONE 50 MG TABLET PO SCH ×2 (08:42→08:46)
[2017-10-08] MEDS: PHYTONADIONE 5 MG TABLET PO SCH (08:42)
[2017-10-08 08:47] VITALS: BP 81/41
[2017-10-08 14:13] VITALS: BP 97/65
[2017-10-08 19:56] VITALS: BP 101/63
[2017-10-09 01:18] VITALS: BP 92/56
[2017-10-09] MEDS: OXYcodone IR 5MG TABLET PO PRN ×3 (02:24→14:38)
[2017-10-09] MEDS: LEVOTHYROXINE 125 MCG TABLET PO SCH (06:00)
[2017-10-09 07:23] VITALS: BP 90/51
[2017-10-09] MEDS: RIFAXIMIN 550 MG TABLET PO SCH (08:33)
[2017-10-09] MEDS: SPIRONOLACTONE 50 MG TABLET PO SCH (08:34)
[2017-10-09] MEDS: MULTIVITAMIN 1 TABLET PO SCH (08:34)
[2017-10-09] MEDS: MAGNESIUM OXIDE 400 MG TABLET PO SCH (08:34)
[2017-10-09] MEDS: PHYTONADIONE 5 MG TABLET PO SCH (08:34)
[2017-10-09] MEDS: FUROSEMIDE 40 MG TABLET PO SCH (08:34)
[2017-10-09] MEDS: THIAMINE 100MG TABLET PO SCH (08:34)
[2017-10-09] MEDS: FOLIC ACID 1 MG TABLET PO SCH (08:35)
[2017-10-09] MEDS: LACTULOSE 20 GM/30 ML UDC PO SCH ×2 (08:36→14:38)
[2017-10-09 14:58] VITALS: BP 98/65
[2017-10-09] MEDS ORDERED: RIFA550T4 PO (16:49)
[2017-10-09] MEDS ORDERED: LEVO125T PO (16:49)
[2017-10-09] MEDS ORDERED: LACT20SO13 PO (16:49)
== END 2017-10-09 18:40 | disposition home or self-care (01) | DRG 441 ==
LOC: ED 21:04 → EDIP 21:52 → 4NOR 21:58
PROVIDERS: ADMIT Internal Medicine; ATTEND Internal Medicine
DX: K72.00 Acute and subacute hepatic failure without coma (principal); N17.0 Acute kidney failure with tubular necrosis; G93.41 Metabolic encephalopathy; D68.9 Coagulation defect, unspecified; D69.6 Thrombocytopenia, unspecified; I95.9 Hypotension, unspecified; E44.1 Mild protein-calorie malnutrition; E87.1 Hypo-osmolality and hyponatremia; B18.1 Chronic viral hepatitis B without delta-agent; B15.9 Hepatitis A without hepatic coma; K86.1 Other chronic pancreatitis; R16.1 Splenomegaly, not elsewhere classified; B18.2 Chronic viral hepatitis C; F10.21 Alcohol dependence, in remission; G40.909 Epilepsy, unspecified, not intractable, without status epilepticus; K76.0 Fatty (change of) liver, not elsewhere classified; K83.8 Other specified diseases of biliary tract; N27.0 Small kidney, unilateral; D53.9 Nutritional anemia, unspecified; E03.9 Hypothyroidism, unspecified; Z90.49 Acquired absence of other specified parts of digestive tract; Z68.20 Body mass index [BMI] 20.0-20.9, adult; Z88.0 Allergy status to penicillin; Z88.8 Allergy status to other drugs, medicaments and biological substances; Z80.9 Family history of malignant neoplasm, unspecified; Z83.3 Family history of diabetes mellitus; Z90.81 Acquired absence of spleen; Z79.899 Other long term (current) drug therapy
CPT/HCPCS: 36415; 70450; 71045; 76700; 80053; 80307; 81001; 82140; 83690; 83735; 84100; 84443; 84484; 85025; 85610; 87086; 93005; 96374; 96375; J1170; J2405; J7030

== ENCOUNTER 2017-10-19 10:09 | Emergency (ER) | payer MEDICARE, MEDICAID ==
[~2017-10-19] VITALS: Ht 157.5 cm; Wt 48.8 kg
[~2017-10-19 10:09] MED LIST changes: +LACT20SO13 PO; +LEVO125T PO; +RIFA550T4 PO
[2017-10-19 10:14] VITALS: BP 123/78
[2017-10-19 11:12] LABS: INTERNATIONAL NORMALIZED RATIO 1.44 (0.93-1.1); PROTHROMBIN TIME 14.9 Seconds (9.6-11.5)
[2017-10-19 11:16] LABS: ALBUMIN 2.9 g/dL (3.4-5.0); ANION GAP 10 mmol/L (5-15); CHLORIDE 102 mmol/L (98-107)
[2017-10-19 11:17] LABS: MEAN CORPUSCULAR HEMOGLOBIN 35.2 pg (27.0-34.8); MEAN CORPUSCULAR HGB CONC 33.9 g/dL (32.4-35.8); MEAN CORPUSCULAR VOLUME 103.8 fL (80-100); RED BLOOD COUNT 2.55 x10^6/uL (3.82-5.3); RED CELL DISTRIBUTION WIDTH 17.7 % (9.6-15.2)
[2017-10-19 11:27] LABS: ALANINE AMINOTRANSFERASE 24 U/L (12-78); ALKALINE PHOSPHATASE 97 U/L (45-117); BILIRUBIN,TOTAL 5.8 mg/dL (0.2-1.0); CREATININE 1.26 mg/dL (0.55-1.02); FREE T4 (FREE THYROXINE) 2.04 ng/dL (0.76-1.46); TOTAL PROTEIN 7.4 g/dL (6.4-8.2)
[2017-10-19] MEDS ORDERED: OXYcodone/APAP 5/325MG TABLET ONE (11:27)
[2017-10-19 11:28] LABS: MEAN PLATELET VOLUME 8.3 fL (7.4-10.4); PLATELET COUNT 71 x10^3/uL (130-400)
[2017-10-19 11:29] LABS: BASOPHILS # (AUTO) 0.01 x10^3/uL (0-0.1); BASOPHILS % (AUTO) 0 % (0-1); EOSINOPHILS # (AUTO) 0.15 x10^3/uL (0-0.4); EOSINOPHILS % (AUTO) 2 % (1-7); LYMPHOCYTES # (AUTO) 0.57 x10^3/uL (1-3.4); LYMPHOCYTES % (AUTO) 8 % (22-44); MD MORPH REVIEW ONLY; MONOCYTES # (AUTO) 0.54 x10^3/uL (0.2-0.8); MONOCYTES % (AUTO) 7 % (2-9); NEUTROPHILS # (AUTO) 6.12 x10^3/uL (1.8-6.8); NEUTROPHILS % (AUTO) 83 % (42-75)
[2017-10-19] MEDS ORDERED: LACTULOSE 20 GM/30 ML UDC PO SCH (11:30)
[2017-10-19] MEDS ORDERED: OXYcodone 5 MG/5 ML ORAL.SOL UDC PO PRN (11:30)
[2017-10-19 11:32] LABS: ANISOCYTOSIS 1+
[2017-10-19 11:33] LABS: ECHINOCYTES 1+
[2017-10-19 11:35] LABS: <PLATELET ESTIMATE> DECREASED; <PLT MORPHOLOGY> NORMAL PLT MORPH; OVALOCYTES 1+
[2017-10-19 11:36] LABS: SCHISTOCYTES 1+
[2017-10-19 12:00] LABS: CULTURE INDICATED? YES; MICROSCOPIC INDICATED
== END 2017-10-19 13:25 | disposition home or self-care (01) ==
LOC: ED 10:39
DX: K72.10 Chronic hepatic failure without coma (principal); N30.00 Acute cystitis without hematuria; G40.909 Epilepsy, unspecified, not intractable, without status epilepticus; Z90.49 Acquired absence of other specified parts of digestive tract; Z87.891 Personal history of nicotine dependence
CPT/HCPCS: 36415; 70450; 71045; 80053; 81001; 82140; 83690; 84439; 84443; 85025; 85610; 87040; 87086; 99285

== ENCOUNTER → 2018-01-01 | Outpatient (CLI) | payer MEDICARE, MEDICAID | END | disposition home or self-care (01) | LOC: CFH 15:53 | PROVIDERS: ATTEND Physician Assistant | DX: K86.2 Cyst of pancreas (principal); K83.8 Other specified diseases of biliary tract; K74.60 Unspecified cirrhosis of liver; B19.20 Unspecified viral hepatitis C without hepatic coma; R93.2 Abnormal findings on diagnostic imaging of liver and biliary tract | CPT/HCPCS: 74181 ==

== ENCOUNTER 2018-07-25 08:12 | Outpatient (CLI) | payer MEDICARE, MEDICAID ==
[~2018-07-25 08:12] MED LIST changes: -THIA100T6 PO; +THIA100T67 PO
[2018-07-25] MEDS ORDERED: GADOBUTROL 7.5 MMOL/7.5 ML VIAL ONE (08:55)
[2018-07-25 13:01] LABS: ALBUMIN 3.1 g/dL (3.4-5.0); ANION GAP 9 mmol/L (5-15); CHLORIDE 110 mmol/L (98-107); CREATININE 0.99 mg/dL (0.55-1.02)
[2018-07-25 13:10] LABS: ALANINE AMINOTRANSFERASE 53 U/L (12-78); ALKALINE PHOSPHATASE 142 U/L (45-117); BILIRUBIN,TOTAL 3.6 mg/dL (0.2-1.0); TOTAL PROTEIN 6.1 g/dL (6.4-8.2)
== END 2018-08-01 12:34 | disposition home or self-care (01) ==
LOC: CFH 08:12
PROVIDERS: ATTEND Physician Assistant
DX: R16.1 Splenomegaly, not elsewhere classified (principal); K70.31 Alcoholic cirrhosis of liver with ascites; Z90.49 Acquired absence of other specified parts of digestive tract; Z85.05 Personal history of malignant neoplasm of liver
CPT/HCPCS: 36415; 74183; 80053; 82565; A9585

== ENCOUNTER 2018-10-11 14:05 | Outpatient (CLI) | payer MEDICARE, MEDICAID ==
[2018-10-11] MEDS ORDERED: LORA-445 PO (14:54)
[2018-10-11] MEDS ORDERED: OXYC5CAP2 PO (14:54)
[2018-10-11] MEDS ORDERED: SPIR25TA5 PO (14:54)
[2018-10-11] MEDS ORDERED: FURO-92 PO (14:54)
[2018-10-11] MEDS ORDERED: MULT-658 PO (14:54)
[2018-10-11] MEDS ORDERED: LACT10SO28 PO (14:54)
[2018-10-11 16:00] LABS: INTERNATIONAL NORMALIZED RATIO 1.22 (0.93-1.1); PROTHROMBIN TIME 12.8 Seconds (9.6-11.5)
== END 2018-10-11 23:59 | disposition home or self-care (01) ==
LOC: STAR 14:05
PROVIDERS: ATTEND Internal Medicine Gastroenterology
DX: R93.2 Abnormal findings on diagnostic imaging of liver and biliary tract (principal); K74.60 Unspecified cirrhosis of liver; E11.9 Type 2 diabetes mellitus without complications
CPT/HCPCS: 36415; 85610; 85730

== ENCOUNTER 2018-10-18 06:26 | Day surgery (SDC) | payer MEDICARE, MEDICAID ==
[~2018-10-18] VITALS: Ht 152.4 cm; Wt 61.7 kg
[~2018-10-18 06:26] MED LIST changes: +FURO-92 PO; +LACT10SO28 PO; +LORA-445 PO; +MULT-658 PO; +OXYC5CAP2 PO; +SPIR25TA5 PO
[2018-10-18] MEDS ORDERED: LACTATED RINGERS 1,000 ML IV SCH (07:26)
[2018-10-18 07:30] VITALS: BP 97/66
[2018-10-18] MEDS ORDERED: CHLORHEXIDINE 15 ML UDC ONE (07:57)
[2018-10-18] MEDS ORDERED: MIDAZOLAM 1 MG/ML, 2ML ONE (08:18)
[2018-10-18] MEDS ORDERED: CLINDAMYCIN 150 MG/ML, 6ML ONE (08:27)
[2018-10-18] MEDS ORDERED: PROPOFOL 10 MG/ML, 20ML ONE (08:29)
[2018-10-18] MEDS ORDERED: SUCCINYLCHOLINE 20 MG/ML, 10ML ONE (08:29)
[2018-10-18] MEDS ORDERED: FENTANYL PF 100 MCG/2ML IV PRN (08:30)
[2018-10-18] MEDS ORDERED: LORazepam 2 MG/ML, 1ML IVPush PRN (08:30)
[2018-10-18] MEDS ORDERED: OXYcodone 5 MG/5 ML ORAL.SOL UDC PO PRN (08:30)
[2018-10-18] MEDS ORDERED: ONDANSETRON 2MG/ML, 2ML IV PRN (08:30)
== END 2018-10-18 10:15 | disposition home or self-care (01) ==
LOC: OUT 06:26
PROVIDERS: ATTEND Internal Medicine Gastroenterology
DX: K86.2 Cyst of pancreas (principal); K29.50 Unspecified chronic gastritis without bleeding; K74.60 Unspecified cirrhosis of liver; K76.6 Portal hypertension; K31.89 Other diseases of stomach and duodenum; Z88.5 Allergy status to narcotic agent; Z88.0 Allergy status to penicillin
CPT/HCPCS: 43239; 43259; 88305; J0330; J2250; J2704; J7120

== ENCOUNTER → 2020-10-05 | Outpatient (CLI) | payer MEDICARE, MEDICAID ==
[~2020-10-05] MED LIST changes: +ERGO500017 PO; +LEVO75TA5 PO; +MAGNESIUM PO; +MULT-449 PO; -MULT1TAB60 PO; +PROM25TA10 PO; +SIMV20TA19 PO; +XIFAXAN PO
[2020-10-05 15:33] LABS: BASOPHILS % (AUTO) 1 % (0-1); EOSINOPHILS % (AUTO) 7 % (1-7); LYMPHOCYTES % (AUTO) 36 % (22-44); MEAN CORPUSCULAR HEMOGLOBIN 33.2 pg (27.0-34.8); MEAN CORPUSCULAR HGB CONC 34.7 g/dL (32.4-35.8); MEAN PLATELET VOLUME 9.2 fL (7.4-10.4); MONOCYTES % (AUTO) 11 % (2-9); NEUTROPHILS % (AUTO) 44 % (42-75); PLATELET COUNT 55 x10^3/uL (130-400); RED BLOOD COUNT 4.17 x10^6/uL (3.82-5.3); RED CELL DISTRIBUTION WIDTH 14.1 % (9.6-15.2)
[2020-10-05 15:51] LABS: MD SCAN
[2020-10-05 15:56] LABS: CHLORIDE 108 mmol/L (98-107)
[2020-10-05 16:37] LABS: ALANINE AMINOTRANSFERASE 88 U/L (12-78); ALBUMIN 3.6 g/dL (3.4-5.0); ALKALINE PHOSPHATASE 132 U/L (45-117); ANION GAP 8 mmol/L (5-15); BILIRUBIN,TOTAL 2.2 mg/dL (0.2-1.0); CALCIUM 9.1 mg/dL (8.5-10.1); TOTAL PROTEIN 6.2 g/dL (6.4-8.2)
[2020-10-05 17:28] LABS: CREATININE 0.95 mg/dL (0.55-1.02)
== END | disposition home or self-care (01) ==
LOC: STAR 13:24
PROVIDERS: ATTEND Internal Medicine Gastroenterology
DX: Z01.818 Encounter for other preprocedural examination (principal); R93.89 Abnormal findings on diagnostic imaging of other specified body structures; K74.69 Other cirrhosis of liver
CPT/HCPCS: 36415; 80053; 85025; 93005

== ENCOUNTER 2020-10-09 06:04 | Day surgery (SDC) | payer MEDICARE, MEDICAID ==
[~2020-10-09] VITALS: Ht 152.4 cm; Wt 55.5 kg
[2020-10-09 06:55] VITALS: BP 102/72
[2020-10-09] MEDS ORDERED: LACTATED RINGERS 1,000 ML IV SCH (07:00)
[2020-10-09] MEDS ORDERED: CHLORHEXIDINE 15 ML UDC MM ONE (07:00)
[2020-10-09] MEDS ORDERED: MIDAZOLAM 1 MG/ML, 2ML ONE (07:04)
[2020-10-09] MEDS ORDERED: FENTANYL PF 250 MCG/5ML ONE (07:04)
[2020-10-09] MEDS ORDERED: SUCCINYLCHOLINE 20 MG/ML, 10ML ONE (07:06)
[2020-10-09] MEDS ORDERED: ROCURONIUM 10MG/ML,5ML ONE (07:07)
[2020-10-09] MEDS ORDERED: DEXAMETHASONE 4 MG/ML, 5ML ONE (07:07)
[2020-10-09] MEDS ORDERED: ONDANSETRON 2MG/ML, 2ML ONE (07:07)
[2020-10-09] MEDS ORDERED: PROPOFOL 10 MG/ML, 20ML ONE (07:13)
[2020-10-09] MEDS ORDERED: HYDROmorphone 1 MG/ML, 1ML INJ IVPush PRN (07:30)
[2020-10-09] MEDS ORDERED: LABETALOL 5MG/ML, 20ML IV PRN (07:30)
[2020-10-09] MEDS ORDERED: hydrALAzine 20 MG/ML, 1ML IV PRN (07:30)
[2020-10-09] MEDS ORDERED: PROMETHAZINE 25 MG/ML, 1ML IVPush PRN (07:30)
[2020-10-09] MEDS ORDERED: ONDANSETRON 2MG/ML, 2ML IVPush PRN (07:30)
[2020-10-09] MEDS ORDERED: CEFAZOLIN 1,000 MG ONE (07:31)
[2020-10-09] MEDS ORDERED: OMNIPAQUE 350 MG/ML, 50 ML BOTTLE ONE (08:03)
[2020-10-09] MEDS ORDERED: FENTANYL PF 100 MCG/2ML ONE (08:08)
[2020-10-09] MEDS: FENTANYL PF 100 MCG/2ML IV PRN ×2 (08:09→08:21)
[2020-10-09] MEDS ORDERED: OXYcodone 5 MG/5 ML ORAL.SOL UDC ONE (08:13)
[2020-10-09] MEDS: OXYcodone 5 MG/5 ML ORAL.SOL UDC PO PRN ×2 (08:14→08:46)
== END 2020-10-09 09:20 | disposition home or self-care (01) ==
LOC: OUT 06:04
PROVIDERS: ATTEND Internal Medicine Gastroenterology
DX: K80.50 Calculus of bile duct without cholangitis or cholecystitis without obstruction (principal); K74.60 Unspecified cirrhosis of liver; R93.2 Abnormal findings on diagnostic imaging of liver and biliary tract; R10.13 Epigastric pain; F32.9 Major depressive disorder, single episode, unspecified; E03.9 Hypothyroidism, unspecified; Z20.822 Contact with and (suspected) exposure to COVID-19; Z88.0 Allergy status to penicillin; Z88.8 Allergy status to other drugs, medicaments and biological substances; Z90.49 Acquired absence of other specified parts of digestive tract; Z98.890 Other specified postprocedural states; Z90.81 Acquired absence of spleen; Z82.49 Family history of ischemic heart disease and other diseases of the circulatory system; Z82.5 Family history of asthma and other chronic lower respiratory diseases; Z79.899 Other long term (current) drug therapy; Z80.1 Family history of malignant neoplasm of trachea, bronchus and lung
CPT/HCPCS: 43262; 43264; 74328; 87635; C1769; J0330; J0690; J1100; J2250; J2405; J2704; J3010; J7120; Q9967

== ENCOUNTER 2021-05-11 13:46 | Inpatient (IN) | payer MEDICARE, MEDICAID ==
[2021-05-10 07:54] VITALS: BP 97/66
[~2021-05-11] VITALS: Ht 152.4 cm; Wt 60.8 kg
[~2021-05-11 13:46] MED LIST changes: -FOLI-17 PO; +FOLI1TAB32 PO; -OXYC5TAB3 PO; +OXYC5TAB98 PO
--- NOTE | 2021-05-11 17:34 | NUR ---
Pt wheeled to room at this time, changing in to gown.
--- NOTE | 2021-05-11 18:00 | NUR ---
This pt reports being diagnosed with Hep A, B, C and cirrhosis in 2017, "that's when my legs started swelling." Prescribed diuretics that have kept it under control since then. Pt denies changes in meds. Pt states she's been noticing swelling all over but concentrated in her legs for several weeks, "since I hurt my back" helping her sister move.
[2021-05-11 18:30] LABS: BASOPHILS % (AUTO) 1 % (0-1); EOSINOPHILS % (AUTO) 6 % (1-7); LYMPHOCYTES % (AUTO) 29 % (22-44); MEAN CORPUSCULAR HEMOGLOBIN 32.6 pg (27.0-34.8); MEAN CORPUSCULAR HGB CONC 34.6 g/dL (32.4-35.8); MONOCYTES % (AUTO) 13 % (2-9); NEUTROPHILS % (AUTO) 51 % (42-75); PLATELET COUNT 93 x10^3/uL (130-400); RED BLOOD COUNT 4.12 x10^6/uL (3.82-5.3)
[2021-05-11 18:34] LABS: ALANINE AMINOTRANSFERASE 131 U/L (12-78); ALBUMIN 3.5 g/dL (3.4-5.0); ANION GAP 10 mmol/L (5-15); CALCIUM 9.4 mg/dL (8.5-10.1); CHLORIDE 94 mmol/L (98-107); CREATININE 0.92 mg/dL (0.55-1.02)
[2021-05-11 18:39] LABS: ALKALINE PHOSPHATASE 228 U/L (45-117); BILIRUBIN,TOTAL 1.6 mg/dL (0.2-1.0); TOTAL PROTEIN 6.7 g/dL (6.4-8.2)
--- NOTE | 2021-05-11 18:52 | NUR ---
received report from JUSTEN Garibay
[2021-05-11 19:07] LABS: MICROSCOPIC INDICATED
--- NOTE | 2021-05-11 19:07 | NUR ---
patient ambulated to bathroom with steady gait.
--- NOTE | 2021-05-11 19:43 | NUR ---
hospitalist at bedside.
[2021-05-11] MEDS ORDERED: ONDANSETRON 2MG/ML, 2ML IVPush PRN (20:00)
[2021-05-11] MEDS ORDERED: LABETALOL 5MG/ML, 20ML IVPush PRN (20:00)
[2021-05-11] MEDS ORDERED: MELATONIN 5 MG TABLET PO PRN (20:00)
[2021-05-11] MEDS ORDERED: FUROSEMIDE 40 MG/4 ML IV ONE (20:30)
--- NOTE | 2021-05-11 20:34 | NUR ---
daniel wraps applied to both knees.
[2021-05-11] MEDS ORDERED: FUROSEMIDE 40 MG/4 ML ONE (20:42)
[2021-05-11] MEDS ORDERED: ENOXAPARIN 40 MG/0.4 ML ONE (20:42)
--- NOTE | 2021-05-11 20:47 | NUR ---
report to JUSTEN Wood
[2021-05-11] MEDS: ENOXAPARIN 40 MG/0.4 ML SQ SCH (20:54)
--- NOTE | 2021-05-11 20:57 | NUR ---
Ultrasound at bedside.
[2021-05-11] MEDS: LACTULOSE 10 GM/15 ML UDC PO SCH (21:00)
[2021-05-11 21:48] VITALS: BP 123/80
[2021-05-11] MEDS: KETOROLAC 30 MG/1 ML IV PRN (22:16)
[2021-05-12 02:27] VITALS: BP 105/70
[2021-05-12 06:27] LABS: BASOPHILS % (AUTO) 1 % (0-1); EOSINOPHILS % (AUTO) 5 % (1-7); LYMPHOCYTES % (AUTO) 24 % (22-44); MEAN CORPUSCULAR HEMOGLOBIN 33.4 pg (27.0-34.8); MEAN CORPUSCULAR HGB CONC 35.5 g/dL (32.4-35.8); MEAN PLATELET VOLUME 8.3 fL (7.4-10.4); MONOCYTES % (AUTO) 12 % (2-9); NEUTROPHILS % (AUTO) 58 % (42-75); PLATELET COUNT 80 x10^3/uL (130-400); RED BLOOD COUNT 3.74 x10^6/uL (3.82-5.3); RED CELL DISTRIBUTION WIDTH 13.4 % (9.6-15.2)
[2021-05-12 06:30] LABS: CHLORIDE 96 mmol/L (98-107)
[2021-05-12 06:38] LABS: ALANINE AMINOTRANSFERASE 113 U/L (12-78); ALKALINE PHOSPHATASE 200 U/L (45-117); ANION GAP 9 mmol/L (5-15); BILIRUBIN,TOTAL 1.6 mg/dL (0.2-1.0); CALCIUM 9.3 mg/dL (8.5-10.1); CREATININE 0.93 mg/dL (0.55-1.02); TOTAL PROTEIN 5.9 g/dL (6.4-8.2)
[2021-05-12] MEDS ORDERED: FUROSEMIDE 40 MG/4 ML IV SCH (07:30)
[2021-05-12 07:54] VITALS: BP 97/66
[2021-05-12] MEDS: LACTULOSE 10 GM/15 ML UDC PO SCH ×2 (08:11→20:47)
[2021-05-12] MEDS: CALCITONIN NASAL 200 UNITS/0.09ML, 3.7ML NAS SCH (09:32)
[2021-05-12] MEDS: KETOROLAC 30 MG/1 ML IV PRN (09:33)
[2021-05-12] MEDS ORDERED: LORazepam 0.5MG TABLET PO PRN (11:00)
[2021-05-12] MEDS: OXYcodone 5 MG/5 ML ORAL.SOL UDC PO PRN ×3 (12:08→20:47)
[2021-05-12 13:56] VITALS: BP 105/71
[2021-05-12] MEDS: FUROSEMIDE 40 MG/4 ML IV SCH (16:32)
[2021-05-12] MEDS: GABAPENTIN 100 MG CAPSULE PO SCH ×2 (16:33→20:47)
[2021-05-12 20:01] VITALS: BP 114/82
[2021-05-12] MEDS: ENOXAPARIN 40 MG/0.4 ML SQ SCH (20:47)
[2021-05-13 00:23] VITALS: BP 98/62
[2021-05-13] MEDS: OXYcodone 5 MG/5 ML ORAL.SOL UDC PO PRN ×3 (05:01→14:25)
[2021-05-13 05:13] LABS: BASOPHILS % (AUTO) 1 % (0-1); EOSINOPHILS % (AUTO) 8 % (1-7); LYMPHOCYTES % (AUTO) 35 % (22-44); MEAN CORPUSCULAR HEMOGLOBIN 33.7 pg (27.0-34.8); MEAN CORPUSCULAR HGB CONC 35.9 g/dL (32.4-35.8); MEAN PLATELET VOLUME 8.2 fL (7.4-10.4); MONOCYTES % (AUTO) 13 % (2-9); NEUTROPHILS % (AUTO) 43 % (42-75); PLATELET COUNT 75 x10^3/uL (130-400); RED BLOOD COUNT 3.52 x10^6/uL (3.82-5.3); RED CELL DISTRIBUTION WIDTH 12.7 % (9.6-15.2)
[2021-05-13 05:23] LABS: ALANINE AMINOTRANSFERASE 129 U/L (12-78); ALBUMIN 2.7 g/dL (3.4-5.0); ANION GAP 8 mmol/L (5-15); CALCIUM 8.8 mg/dL (8.5-10.1); CHLORIDE 95 mmol/L (98-107)
[2021-05-13 05:30] LABS: ALKALINE PHOSPHATASE 196 U/L (45-117); BILIRUBIN,TOTAL 1.2 mg/dL (0.2-1.0); CREATININE 1.03 mg/dL (0.55-1.02); TOTAL PROTEIN 5.2 g/dL (6.4-8.2)
[2021-05-13] MEDS ORDERED: LEVOTHYROXINE 50 MCG TABLET PO SCH (06:00)
[2021-05-13 07:39] VITALS: BP 109/68
[2021-05-13] MEDS: FUROSEMIDE 40 MG/4 ML IV SCH (08:47)
[2021-05-13] MEDS: CALCITONIN NASAL 200 UNITS/0.09ML, 3.7ML NAS SCH (08:47)
[2021-05-13] MEDS: GABAPENTIN 100 MG CAPSULE PO SCH (08:47)
[2021-05-13] MEDS: LACTULOSE 10 GM/15 ML UDC PO SCH (08:47)
[2021-05-13] MEDS ORDERED: FURO-92 PO (11:24)
[2021-05-13] MEDS ORDERED: GABA-826 PO (11:24)
[2021-05-13 12:41] VITALS: BP 105/73
== END 2021-05-13 16:33 | disposition home health service (06) | DRG 433 ==
LOC: ED 20:00 → EDIP 20:22 → OBSVTOIN 20:22 → 3N 21:44
PROVIDERS: ADMIT Internal Medicine; ATTEND Internal Medicine
DX: K70.30 Alcoholic cirrhosis of liver without ascites (principal); E87.1 Hypo-osmolality and hyponatremia; M48.56XA Collapsed vertebra, not elsewhere classified, lumbar region, initial encounter for fracture; D69.6 Thrombocytopenia, unspecified; E03.9 Hypothyroidism, unspecified; E88.09 Other disorders of plasma-protein metabolism, not elsewhere classified; G40.909 Epilepsy, unspecified, not intractable, without status epilepticus; G89.29 Other chronic pain; K75.9 Inflammatory liver disease, unspecified; K76.0 Fatty (change of) liver, not elsewhere classified; Z87.891 Personal history of nicotine dependence; Z90.81 Acquired absence of spleen; D64.9 Anemia, unspecified; Z88.0 Allergy status to penicillin; Z88.8 Allergy status to other drugs, medicaments and biological substances
CPT/HCPCS: 36415; 71045; 80053; 81001; 83735; 83880; 84100; 85025; 93005; 93970; 96374; 99285; G0378; J1650; J1885; J1940